=== PATIENT | male | born 1980 | race Caucasian/White ===

== ENCOUNTER 2022-11-03 14:56 | Emergency (ER) | payer BC, SELFPAY ==
[2022-11-03 15:05] VITALS: BP 176/128; PULSE 95; RESP 18; TEMP 36.7; O2SAT 97; BMI 39.3
--- NOTE | 2022-11-03 16:03 | ED.EAR ---
HPI - Ear Problem General Chief complaint: Ear/Nose/Throat Problem Stated complaint: Bleeding from Ear Time Seen by Provider: 11/03/22 15:48 History of Present Illness HPI Narrative: This 42-year-old male comes in with some right ear pain. He states that he has had some discomfort here for a couple days. Last night he was taking the dog out and had increased pain and felt a pop in his ear. He had more pain through the night. This morning his gave him some liquid to put into his ear. He states that the pain is better. He does not report any fever or shortness of breath. He is otherwise in good health. Related Data Previous Rx's Medication Instructions Recorded amoxicillin 500 mg capsule 500 mg PO TID 10 days #30 caps 11/03/22 Allergies Allergy/AdvReac Type Severity Reaction Status Date / Time No Known Drug Allergies Allergy Verified 11/03/22 15:07 Review of Systems Status of ROS: Reports: 10 or more systems reviewed and unremarkable except as noted in History and below Narrative: Constitutional: No fevers, no weight gain or loss. Eyes: No discharge. No vision changes. HENT: No congestion, no sore throat. Right ear pain as described above. Cardiovascular: No chest pain, no palpitations. Respiratory: No shortness of breath, no wheezes, no cough. Gastrointestinal: No abdominal pain, no vomiting, no diarrhea. Genitourinary: No dysuria, no hematuria. Musculoskeletal: Normal range of motion. Skin: No rashes, no pruritis. Neurological: No dizziness, weakness, sensory change, speech change. Endo/Heme/Allergies: No bruising or bleeding. No polydipsia. Pysch: no suicidality, no anxiety, no insomnia. All other systems reviewed and are negative. PFSH PFS Social History Smoking Status: Never smoker Do you use any of these nicotine containing products: None Second hand tobacco smoke exposure: Yes How often do you have a drink containing alcohol: never How often do you have six or more drinks on one occasion: Never AUDIT-C Alcohol total score: 0 Non-prescribed substance use: denies use Exam Narrative: Exam Narrative: Constitutional: Well-developed, well-nourished, no acute distress. HEENT: Normocephalic, atraumatic. Left tympanic membrane appears normal. Right tympanic membrane is not visualized as he had placed some liquid into the ear canal. There is no sign of swelling, purulence, or bleeding. Neck: Normal range of motion. Nontender. Supple. Heart: Regular. No murmurs. Normal rate. Intact distal pulses. Lungs: Clear to auscultation. No chest discomfort. No wheezes, rhonchi, or rales. Abdomen: Normal bowel sounds. Nontender. No rebound tenderness. Genitalia: Deferred. Back: No midline tenderness. Normal range of motion. Extremities: Normal range of motion. No injury. Skin: Intact. No rash. Warm. No erythema or pallor. Neurologic: No altered sensation. No weakness. Alert and oriented. Psychiatric: No suicidality. No anxiety or depression. No insomnia. Nursing notes and vitals signs are reviewed. Const: Vital Signs, click to edit/add: Vital Signs - 24 hr 11/03/22 15:05 Temperature 98.1 F Pulse Rate [Right Pulse Oximeter] 95 Respiratory Rate 18 Blood Pressure [Ri ght Upper Arm] 176/128 H Pulse Oximetry 97 Oxygen Delivery Me thod Room Air Course Vital Signs Vital signs: Initial Vital Signs Temperature 98.1 F 11/03/22 15:05 Temperature Source Temporal Artery Scan 11/03/22 15:05 Pulse Rate 95 11/03/22 15:05 Respiratory Rate 18 11/03/22 15:05 Blood Pressure 176/128 H 11/03/22 15:05 Blood Pressure Mean 144 11/03/22 15:05 Blood Pressure Position Sitting 11/03/22 15:05 Pulse Oximetry 97 11/03/22 15:05 Oxygen Delivery Method 11/03/22 15:05 Vital Signs Temperature 98.1 F 11/03/22 15:05 Pulse Rate 95 11/03/22 15:05 Respiratory Rate 18 11/03/22 15:05 Blood Pressure 176/128 H 11/03/22 15:05 Pulse Oximetry 97 11/03/22 15:05 Oxygen Delivery Method 11/03/22 15:05 Temperature 98.1 F 11/03/22 15:05 Pulse Rate 95 11/03/22 15:05 Respiratory Rate 18 11/03/22 15:05 Blood Pressure 176/128 H 11/03/22 15:05 Pulse Oximetry 97 11/03/22 15:05 Oxygen Delivery Method 11/03/22 15:05 Medical Decision Making MDM Narrative Medical decision making narrative: This patient has symptoms most likely related to otitis media. He received a prescription for amoxicillin. Discharge Plan Discharge Clinical Impression: Otitis media Patient Disposition: Home, Self-Care Condition: Stable Additional Instructions: Take medication as prescribed. Follow up with MD or return if worsening. Prescriptions: New amoxicillin 500 mg capsule 500 mg PO TID 10 Days Qty: 30 0RF Stand Alone Forms: [facility] Info Instructions
== END 2022-11-03 16:17 | disposition home or self-care (01) ==
PROVIDERS: Emergency Provider Emergency Medicine Emergency Medical Services
DX: H66.91 Otitis media, unspecified, right ear (principal)
CPT/HCPCS: 99283; 99284

== ENCOUNTER 2022-11-12 11:18 | Outpatient (CLI) | payer BC, SELFPAY ==
[2022-11-12 10:32] LABS: Albumin* 4.7 g/dL (3.3-5.0)
[2022-11-12 10:33] LABS: Chloride* 105 mmol/L (96-114); Potassium* 4.4 mmol/L (3.6-5.1); Sodium* 139 mmol/L (135-149)
[2022-11-12 10:35] LABS: Bilirubin Total* 0.6 mg/dL (0.1-1.5); Carbon Dioxide* 26 mmol/L (20-32); Cholesterol* 261 mg/dL (90-199); Estimated Glomerular Filt Rate 96 ml/min
[2022-11-12 10:36] LABS: Alanine Aminotransferase* 53 U/L (4-50); Alkaline Phosphatase* 79 U/L (40-150); Aspartate Amino Transferase* 34 U/L (12-35); Blood Urea Nitrogen* 15 mg/dL (5-24); Calcium* 9.6 mg/dL (8.4-10.6); Glucose* 109 mg/dL (60-115); HDL Cholesterol* 37 mg/dL (>=40); LDL Cholesterol Calculated 176 mg/dL (<100); Total Protein* 7.8 g/dL (6.0-8.3); Triglycerides* 239 mg/dL (40-149)
== END 2022-11-12 11:19 | disposition home or self-care (01) ==
PROVIDERS: PCP Internal Medicine; Visit Provider Internal Medicine
DX: Z00.00 Encounter for general adult medical examination without abnormal findings (principal); I10 Essential (primary) hypertension; Z13.6 Encounter for screening for cardiovascular disorders
CPT/HCPCS: 80053; 80061